=== PATIENT | female | born 1975 | race American Indian/Alaskan Native ===

== ENCOUNTER 2018-01-12 13:18 | Emergency (ER) | payer SELFPAY ==
--- NOTE | 2018-01-12 14:21 | Emergency Department Report ---
Chief Complaint: Dental/Oral Stated Complaint: MOUTH PAIN Time Seen by Provider: 01/12/18 13:54 - HPI History of Present Illness: Patient is a 42-year-old female who has braces one of her wires is sticking in the back of her right upper gums causing swelling and possible facial cellulitis. Patient states this is been present for the last several days she is relocating from another location does not have manager purchasing here. Vision denies any problems swallowing fevers chills nausea vomiting at this time. - ROS Review of Systems: All other systems are reviewed and are negative - Exam Vital Signs: Vital Signs 01/12/18 13:20 Temperature 97.9 F Pulse Rate 64 Respiratory 16 Rate Blood Pressure 108/72 O2 Sat by Pulse 98 Oximetry Physical Exam: Physical exam the patient does have some left-sided facial swelling from the jaw up to the cheek. Inside of the patient's mouth there is swelling and irritation into the left inner mucous membranes. There is a wire at the posterior molar on the left upper teeth that is rubbing against the gums. This thin wire is not able to be dense towards the teeth MSE screening note: Focused history and physical exam performed. Due to findings the following was ordered: ED Medical Decision Making - Medical Decision Making Management attempt to cut this wire with scissors that we have here in the emergency department was unsuccessful. Patient will be given information for an orthodontic to repair her braces. Patient temporarily was given information regarding using a dental putty to try to help decrease the irritation. Patient also be started on clindamycin and Motrin 800. Patient does show some early signs of facial cellulitis. ED Disposition for MSE Clinical Impression: Facial swelling, Orthodontics Disposition: TO HOME OR SELFCARE Is pt being admited?: No Does the pt Need Aspirin: No Condition: Stable
[2018-01-12 14:35] VITALS: BP 126/72
== END 2018-01-12 14:48 | disposition home or self-care (01) ==
LOC: ED 13:18
DX: R22.0 Localized swelling, mass and lump, head (principal); Z46.4 Encounter for fitting and adjustment of orthodontic device
CPT/HCPCS: 99282